=== PATIENT | male | born 1990 | race African-American/Black ===

== ENCOUNTER 2021-09-07 02:08 | Emergency (ER) | payer OTHER ==
[~2021-09-07] VITALS: Ht 177.8 cm; Wt 71.2 kg
[2021-09-07] MEDS ORDERED: TETANUS/DIPHTHERIA TOX ADULT 0.5 ML SYR IM ONE (02:30)
== END 2021-09-07 03:02 | disposition home or self-care (01) ==
LOC: ER 02:21
DX: S61.205A Unspecified open wound of left ring finger without damage to nail, initial encounter (principal); W34.09XA Accidental discharge from other specified firearms, initial encounter; Y92.098 Other place in other non-institutional residence as the place of occurrence of the external cause; F17.210 Nicotine dependence, cigarettes, uncomplicated
CPT/HCPCS: 90714; 99283